=== PATIENT | male | born 2000 | race Caucasian/White ===

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

== ENCOUNTER 2019-07-19 08:36 | Emergency (ER) | payer MEDICAID ==
[~2019-07-19] VITALS: Ht 180.3 cm; Wt 57.2 kg
[2019-07-19 08:52] VITALS: BP 11/72; Ht 180.3 cm; Wt 57.2 kg
== END 2019-07-19 10:39 | disposition home or self-care (01) ==
LOC: ED 08:36
DX: J02.9 Acute pharyngitis, unspecified (principal)
CPT/HCPCS: J1100